=== PATIENT | female | born 1930 | race Caucasian/White ===

== ENCOUNTER 2017-08-08 03:32 | Emergency (ER) | payer MEDICARE, BC ==
--- NOTE | 2017-08-08 04:17 | PCM.HP ---
H&P History of Present Illness - General Date of Service: 08/08/17 Admit Problem/Dx: Admission Diagnosis/Problem Admission Diagnosis/Problem Injury of head Source of Information: RN History Limitations: Reports: No Limitations - History of Present Illness Initial Comments - Free Text/Narative: 87 yr female presents to ER from [facility], Staff reported finding pt face down on floor, unknown how she fell or events around the fall. Swelling and ecchymosis to left forehead and laceration around left eye. Small bruise noted to hand at base of 2nd digit right hand. Pt is responding to verbal command, no verbal response. Small skin tear below left eye. Onset of Symptoms: Reports: Today Symptom Onset Date: 08/08/17 - Related Data Allergies/Adverse Reactions: Allergies Allergy/AdvReac Type Severity Reaction Status Date / Time dexamethasone [From TobraDex] Allergy Other Verified 08/08/17 04:10 ketorolac [From Toradol] Allergy Other Verified 08/08/17 04:10 tobramycin [From TobraDex] Allergy Other Verified 08/08/17 04:10 Home Medications: Home Meds Acetaminophen [Tylenol Arthritis] 650 mg PO BID 08/08/17 [History] Atenolol [Tenormin] 50 mg PO DAILY 08/08/17 [History] Calcium Carbonate/Vitamin D3 [Calcium 500 + Vit D 400] 1 tab PO DAILY 08/08/17 [ History] Docusate Sodium 1 tab PO DAILY 08/08/17 [History] Hydrochlorothiazide/Lisinopril [Lisinopril-HCTZ 20-25 MG] 1 tab PO DAILY [History] Hydrocortisone [Proctozone-HC 2.5% Crm] 1 applic TOP TID 08/08/17 [History] Levothyroxine [Synthroid] 88 mcg PO DAILY 08/08/17 [History] Multivitamins with Iron [Chewable-Riana with Iron] 1 tab PO DAILY 08/08/17 [ History] Nystatin [Nystatin Crm] 1 applic PO DAILY 08/08/17 [History] [place]-3 Fatty Acids [[place]-3] 1,000 mg PO DAILY 08/08/17 [History] Psyllium [Metamucil] 26 gram PO DAILY 08/08/17 [History] Simvastatin [Zocor] 20 mg PO DAILY 08/08/17 [History] Warfarin Sliding Scale [Coumadin Sliding Scale] 1 tab PO DAILY 08/08/17 [History ] amLODIPine [Norvasc] 2.5 mg PO DAILY 08/08/17 [History] H&P Review of Systems - Review of Systems: Review Of Systems: Unable To Obtain Musculoskeletal: Reports: Other (states no pain) Neurological: Reports: Other (hisotry of stroke and limited speech) Exam - Exam Exam: See Below - Vital Signs Vital Signs: Last Vital Signs Temp 97.6 F 08/08/17 04:05 Pulse 74 08/08/17 04:05 Resp 18 08/08/17 04:05 BP 169/77 H 08/08/17 04:05 Pulse Ox 96 08/08/17 04:05 - Exam General: Alert, Cooperative HEENT: Mucosa Moist & [place], Nares Patent, Pupils Equal, Pupils Reactive, Other ( ear canals clear) Neck: Supple Lungs: Clear to Auscultation, Normal Respiratory Effort Cardiovascular: Normal S1, Normal S2 GI/Abdominal Exam: Soft, Non-Tender Extremities: Normal Capillary Refill, Other (moves legs and feet upon command) Skin: Warm, Dry, Ecchymosis, Other (skin tears to left face below eye) Neurological: Strength Equal Bilateral Neuro Extensive - Mental Status: Alert, Nl Response to Commands Psychiatric: Alert, Normal Affect *Q Meaningful Use (ADM) - VTE *Q VTE Criteria *Q: - Stroke *Q Stroke Criteria *Q: - AMI *Q AMI Criteria *Q: - Problem List (1) Laceration of head SNOMED Code(s): 818915096 ICD Code: S01.91XA - LACERATION W/O FOREIGN BODY OF UNSP PART OF HEAD, INIT Status: Acute Priority: High Onset Date: 08/08/17 Qualifiers: Encounter type: initial encounter Location of open wound of head: periocular area Foreign body presence: without foreign body Laterality: left Qualified Code(s): S01.112A - Laceration without foreign body of left eyelid and periocular area, initial encounter Problem List Initiated/Reviewed/Updated: Yes Orders Last 24hrs: Active Orders 24 hr Category Date Time Status Head wo Cont [CT] Stat Exams 08/08/17 04:07 Ordered Assessment/Plan Comment:: LE for 08-08-2017 87 yr female present to ER after fall in [facility]. Hematoma to left forehead and skin tear below left eye. Ecchymosis to left forehead and left kamlesh-orbital area. Pt alert throughout visit in ER. Pt nods head that she is comfortable.. hematoma with laceration to left cheek area, below left eye Area cleansed with Nacl, Bleeding controlled with pressure to area. Telfa applied to area. No sutures at this time, skin is like tissue paper and friable. 4X4 applied and jessy wrap to secure. Ice applied to area. CT scan to head. No hemorrhage noted and no fracture. Pt discharged to [facility] for close observation, reinforce dressing as needed, apply ice to area to decrease swelling and ecchymosis. Staff to observe for any changes in LOC with neuro checks. RTC or contact PCP if symptoms persist or worsen.
--- NOTE | 2017-08-08 08:35 | CT ---
DATE OF SERVICE: 08/08/17 CLINICAL DATA: head injury UNENHANCED BRAIN CT: Multislice acquisition through the brain without IV contrast was performed. Comparison is made to a prior exam dated 04/11/13. There is diffuse cerebral atrophy. There are periventricular lucencies bilaterally consistent with small vessel ischemic change. 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 No masses or mass effect. No intracranial hemorrhage. No evidence of acute or subacute infarct. There is soft tissue swelling of the scalp on the left frontal region and lateral to the left orbit. No underlying fracture. There is a rounded low density lesion in the right maxillary sinus consistent with a retention cyst or polyp. There are surgical changes involving the right globe. IMPRESSION: No acute intracranial abnormalities. [id number] [facility]
--- NOTE | 2017-08-16 16:16 | EDM.PDOC ---
ED HPI GENERAL MEDICAL PROBLEM - General Chief Complaint: Head Injury Stated Complaint: head laceration Time Seen by Provider: 08/08/17 03:53 Source of Information: Reports: Old Records, RN History Limitations: Reports: No Limitations, Other (limited speech from pt, nods only when asked questions, seems appropriate.) - History of Present Illness INITIAL COMMENTS - FREE TEXT/NARRATIVE: Kindly refer to notes in H&P note for same day for this pt. Onset: Today Onset Date: 08/08/17 - Related Data Allergies Allergy/AdvReac Type Severity Reaction Status Date / Time dexamethasone [From TobraDex] Allergy Other Verified 08/08/17 04:10 ketorolac [From Toradol] Allergy Other Verified 08/08/17 04:10 tobramycin [From TobraDex] Allergy Other Verified 08/08/17 04:10 Home Meds: Home Meds Acetaminophen [Tylenol Arthritis] 650 mg PO BID 08/08/17 [History] Atenolol [Tenormin] 50 mg PO DAILY 08/08/17 [History] Calcium Carbonate/Vitamin D3 [Calcium 500 + Vit D 400] 1 tab PO DAILY 08/08/17 [ History] Docusate Sodium 1 tab PO DAILY 08/08/17 [History] Hydrochlorothiazide/Lisinopril [Lisinopril-HCTZ 20-25 MG] 1 tab PO DAILY [History] Hydrocortisone [Proctozone-HC 2.5% Crm] 1 applic TOP TID 08/08/17 [History] Levothyroxine [Synthroid] 88 mcg PO DAILY 08/08/17 [History] Multivitamins with Iron [Chewable-Riana with Iron] 1 tab PO DAILY 08/08/17 [ History] Nystatin [Nystatin Crm] 1 applic PO DAILY 08/08/17 [History] [place]-3 Fatty Acids [[place]-3] 1,000 mg PO DAILY 08/08/17 [History] Psyllium [Metamucil] 26 gram PO DAILY 08/08/17 [History] Simvastatin [Zocor] 20 mg PO DAILY 08/08/17 [History] Warfarin Sliding Scale [Coumadin Sliding Scale] 1 tab PO DAILY 08/08/17 [History ] amLODIPine [Norvasc] 2.5 mg PO DAILY 08/08/17 [History] ED ROS GENERAL - Review of Systems Review Of Systems: Unable To Obtain Musculoskeletal: Reports: Other (nods head to no pain) Neurological: Reports: Other (limited speech relater to history of stroke.) ED EXAM, HEAD INJURY - Physical Exam Exam: See Below General Appearance: Alert, No Apparent Distress Head: Normocephalic, Active Bleeding, Facial Ecchymosis, Facial Lacerations, Facial Swelling, Facial Tenderness. No: Scalp Abrasions, Scalp Ecchymosis, Scalp Hematoma Nexus Criteria: No: Posterior, Midline Cervical Tenderness, Evidence of Intoxication Eyes: Right Eye: Other (pupils equal and reactive) Ears: Normal External Exam, Normal Canal Nose: Normal Inspection, No Blood Throat/Mouth: Normal Inspection, Normal Lips Neck: Non-Tender, Normal Inspection Respiratory: No Respiratory Distress, Lungs Clear Cardiovascular: Normal Peripheral Pulses, Regular Rate, Rhythm GI/Abdominal Exam: Normal Bowel Sounds, Soft, Non-Tender Extremities: Normal Inspection, No Pedal Edema, Normal Capillary Refill, Other ( moves legs and feet upon command) Neurologic: Alert - [place] Coma Score Best Eye Response ([place]): (4) Open Spontaneously Best Verbal Response ([place]): (5) Oriented (15) Best Motor Response ([place]): (6) Obeys Commands Course - Vital Signs Last Recorded V/S: Last Vital Signs Temp 97.6 F 08/08/17 04:05 Pulse 74 08/08/17 04:05 Resp 18 08/08/17 04:05 BP 169/77 H 08/08/17 04:05 Pulse Ox 96 08/08/17 04:05 - Re-Assessments/Exams Free Text/Narrative Re-Assessment/Exam: 08/16/17 16:26 LE kindly refer to H& P note for other documentation for this visit Departure - Departure Time of Disposition: 05:20 Disposition: DC/[facility]fer to [facility] Condition: Good Clinical Impression: Hematoma, Laceration of head, Concussion injury of brain - Discharge Information Referrals: PCP,None [Primary Care Provider] - Forms: ED Department Discharge Additional Instructions: 08-08-17 530am Orders placed in LTCF record. Keep area dry and reinforce dressing as needed with daily dressing change of telfa, 4X4 and jessy to secure. Apply ice to area qid and prn. Up with assist, rest today. Follow-up with PCP next week or sooner if symptoms worsen. - Problem List & Annotations (1) Laceration of head SNOMED Code(s): 821821870 Code(s): S01.91XA - LACERATION W/O FOREIGN BODY OF UNSP PART OF HEAD, INIT Status: Acute Priority: High Onset Date: 08/08/17 Qualifiers: Encounter type: initial encounter Location of open wound of head: periocular area Foreign body presence: without foreign body Laterality: left Qualified Code(s): S01.112A - Laceration without foreign body of left eyelid and periocular area, initial encounter
== END 2017-08-08 05:20 ==
LOC: LB.ED 03:32
DX: S01.111A Laceration without foreign body of right eyelid and periocular area, initial encounter (principal); S00.83XA Contusion of other part of head, initial encounter; S60.221A Contusion of right hand, initial encounter; Z79.899 Other long term (current) drug therapy; Z79.01 Long term (current) use of anticoagulants; W19.XXXA Unspecified fall, initial encounter
CPT/HCPCS: 70450; 85610; 99283; 99283-25